=== PATIENT | female | born 1990 | race Caucasian/White ===

== ENCOUNTER 2024-03-25 02:09 | Observation (INO) | payer OTHER ==
--- NOTE | 2024-03-25 03:22 | ED ---
General Adult HPI - General Chief complaint: Extremity Injury, Upper Stated complaint: transfer/hand pain Time Seen by Provider: 03/25/24 02:27 Source: EMS Mode of arrival: EMS - History of Present Illness Initial comments: 33-year-old female with no significant past medical history presenting to the ED with a chief complaint of right third finger infection. Patient reports lori roximately 2 weeks ago had a small cut to her right third finger. Reports since then has been progressively getting more red, warm, and swollen. Also states that she started to notice pain starting to travel up her right arm. Denies fever or chills. No drainage from the wound. No chest pain shortness of breath. No recent injury to the hand. Is not currently on antibiotics. Patient for this went to [facility] where she was provided a dose of clindamycin, patient 900 mg at 0009. Patient was then transferred to this facility secondary to concerns of tenosynovitis. Patient also had an x-ray performed which revealed no evidence of acute finding. Review of Systems ROS Statement: Those systems with pertinent positive or pertinent negative responses have been documented in the HPI. ROS Other: All systems not noted in ROS Statement are negative. General Exam General appearance: alert, in no apparent distress Eye exam: Present: normal appearance Neck exam: Present: normal inspection Respiratory exam: Present: normal lung sounds bilaterally Cardiovascular Exam: Present: regular rate GI/Abdominal exam: Present: soft Extremities exam: Present: tenderness (Does have streaking erythema going up the right upper extremity with warmth and tenderness to palpation.), other (On the dorsum of the right third finger appears to be abscess formation with surrounding warmth and erythema. Erythema is not circumferential. Does have pain upon passive flexion and extension of the finger however not out of proportion. ) Neurological exam: Present: alert, oriented X3 Skin exam: Present: warm, dry Course Vital Signs 03/25/24 02:16 Temperature 98.5 F Pulse Rate 75 Respiratory 18 Rate Blood Pressure 132/83 O2 Sat by Pulse 99 Oximetry Medical Decision Making - Medical Decision Making Was pt. sent in by a medical professional or institution (TERR[facility] Luciano, SCALLOP CUTTER, urgent care, hospital, or [facility]...) When possible be specific @ -[facility] Did you speak to anyone other than the patient for history (EMS, parent, family, police, friend...)? What history was obtained from this source @ -No Did you review nursing and triage notes (agree or disagree)? Why? @ -I reviewed and agree with nursing and triage notes Were old charts reviewed (outside hosp., previous admission, EMS record, old EKG, old radiological studies, urgent care reports/EKG's, [facility] records)? Report findings @ -Reviewed paperwork from [facility]. For further details please HPI. Differential Diagnosis (chest pain, altered mental status, abdominal pain women, abdominal pain men, vaginal bleeding, weakness, fever, dyspnea, syncope, headache, dizziness, GI bleed, back pain, seizure, CVA, palpatations, mental health, musculoskeletal)? @ -Differential Musculoskeletal Muscular strain, contusion, ligament sprain, fracture, arthritis, septic arthritis, bursitis, cellulitis, muscle spasm, nerve compression, DVT, arterial occlusion, herpes zoster, electrolyte abnormality, tumor.... This is not meant to be in all inclusive list EKG interpreted by me (3pts min.). @ -None X-rays interpreted by me (1pt min.). @ -None done CT interpreted by me (1pt min.). @ -None done U/S interpreted by me (1pt. min.). @ -None done What testing was considered but not performed or refused? (CT, X-rays, U/S, labs)? Why? @ -None What meds were considered but not given or refused? Why? @ -None Did you discuss the management of the patient with other professionals (professionals i.e. , PA, SCALLOP CUTTER, lab, RT, psych nurse, social secretary, mysql database administrator, teacher, light armored reconnaissance officer, oil field caser)? Give summary @ -Case discussed with Dr. Newberry, who accepted admission. Was smoking cessation discussed for >3mins.? @ -No Was critical care preformed (if so, how long)? @ -No Were there social determinants of health that impacted care today? How? (Homelessness, low income, unemployed, alcoholism, drug addiction, transportation, low edu. Level, literacy, decrease access to med. care, detention, rehab)? @ -No Was there de-escalation of care discussed even if they declined (Discuss DNR or withdrawal of care, Hospice)? DNR status @ -No What co-morbidities impacted this encounter? (DM, HTN, Smoking, COPD, CAD, Cancer, CVA, ARF, Chemo, Hep., AIDS, mental health diagnosis, sleep apnea, morbid obesity)? @ -None Was patient admitted / discharged? Hospital course, mention meds given and route, prescriptions, significant lab abnormalities, going to OR and other per tinent info. @ -Admission 33-year-old female transferred to this facility from [facility] secondary to concerns of tenosynovitis. Patient has had remote injury to her ri ght third finger approximately 2 weeks ago. Since then has developed increasing redness and pain of that finger. On examination does appear to have abscess formation on the dorsum of her right third finger with surrounding erythema however erythema appears noncircumferential. No pain out of proportion on passive flexion or extension of the finger. Does however have streaking erythema up her right upper extremity. At this time vital signs stable afebrile. Does not appear to meet sepsis criteria. Patient had clindamycin given to her at [facility]. Additional dose of clindamycin was ordered for her to be given in the morning. Patient will be admitted to observation with consult to orthopedics. Discussed plan of care with patient who is in agreement. Undiagnosed new problem with uncertain prognosis? @ -No Drug Therapy requiring intensive monitoring for toxicity (Heparin, Nitro, Insulin, Cardizem)? @ -No Were any procedures done? @ -No Diagnosis/symptom? @ -Infection, right third finger Acute, or Chronic, or Acute on Chronic? @ -Acute Uncomplicated (without systemic symptoms) or Complicated (systemic symptoms)? @ -Complicated Side effects of treatment? @ -No Exacerbation, Progression, or Severe Exacerbation? @ -No Poses a threat to life or bodily function? How? (Chest pain, [place], [place], pneumonia, PE, COPD, DKA, ARF, appy, cholecystitis, CVA, Diverticulitis, Homicidal, Suicidal, threat to staff... and all critical care pts) @ -Possibly, infection of the right third finger. - Lab Data Result diagrams: 03/25/24 03:18 Lab Results 03/25/24 Range/Units 03:18 WBC 11.6 H (3.8-10.6) k/uL RBC 4.63 (3.80-5.40) m/uL Hgb 13.1 (11.4-16.0) gm/dL Hct 38.6 (34.0-46.0) % MCV 83.4 (80.0-100.0) fL MCH 28.2 (25.0-35.0) pg MCHC 33.8 (31.0-37.0) g/dL RDW 12.9 (11.5-15.5) % Plt Count 361 (150-450) k/uL MPV 7.4 Neutrophils % 82 % Lymphocytes % 10 % Monocytes % 5 % Eosinophils % 2 % Basophils % 0 % Neutrophils # 9.5 H (1.3-7.7) k/uL Lymphocytes # 1.1 (1.0-4.8) k/uL Monocytes # 0.6 (0-1.0) k/uL Eosinophils # 0.2 (0-0.7) k/uL Basophils # 0.0 (0-0.2) k/uL Disposition Clinical Impression: Finger infection Disposition: ADMITTED IP TO THIS [facility] Condition: Good Referrals: None,Stated [Primary Care Provider] - 1-2 days Time of Disposition: 02:30
[2024-03-25 03:28] LABS: Basophils % (A) 0 %; Eosinophils # (A) 0.2 k/uL (0-0.7); Eosinophils % (A) 2 %; HCT 38.6 % (34.0-46.0); HGB 13.1 gm/dL (11.4-16.0); Lymphocytes # (A) 1.1 k/uL (1.0-4.8); Lymphocytes % (A) 10 %; MCH 28.2 pg (25.0-35.0); MCHC 33.8 g/dL (31.0-37.0); MCV 83.4 fL (80.0-100.0); Mean Platelet Volume 7.4; Monocytes # (A) 0.6 k/uL (0-1.0); Monocytes % (A) 5 %; Neutrophils # (A) 9.5 k/uL (1.3-7.7); Neutrophils % (A) 82 %; Platelet Count 361 k/uL (150-450); RBC 4.63 m/uL (3.80-5.40); RDW 12.9 % (11.5-15.5); WBC 11.6 k/uL (3.8-10.6)
[2024-03-25] MEDS ORDERED: ONDANSETRON 4 MG/2 ML VIAL IVP PRN (03:42)
[2024-03-25] MEDS ORDERED: NALOXONE 0.4 MG/ML 1 ML VIAL IV PRN (03:42)
[2024-03-25 03:48] LABS: ALT 17 U/L (4-34); AST 24 U/L (14-36); African American GFR (CKD) >90 (>60 ml/min/1.73 sqM); Albumin 4.3 g/dL (3.5-5.0); Alkaline Phosphatase 75 U/L (38-126); Anion Gap 7 mmol/L; Blood Urea Nitrogen 11 mg/dL (7-17); Calcium 9.2 mg/dL (8.4-10.2); Carbon Dioxide 25 mmol/L (22-30); Chloride 105 mmol/L (98-107); Glucose 93 mg/dL (74-99); Non-African American GFR(CKD) >90 (>60 ml/min/1.73 sqM); Potassium 3.7 mmol/L (3.5-5.1); Sodium 137 mmol/L (137-145); Total Bilirubin 0.5 mg/dL (0.2-1.3); Total Protein 7.3 g/dL (6.3-8.2)
[2024-03-25] MEDS: SODIUM CHLORIDE 0.9% 1,000 ML IV STA (03:55)
[2024-03-25] MEDS: ACETAMINOPHEN TAB 500 MG TAB PO STA (03:59)
[2024-03-25] MEDS: KETOROLAC 15 MG/ML 1 ML VIAL IVP STA (04:01)
[2024-03-25] MEDS: HYDROmorphone 1 MG/ML 1 ML SYRINGE IVP STA ×2 (04:02→04:03)
--- NOTE | 2024-03-25 05:36 | P.HPIM ---
History of Present Illness H&P Date: 03/25/24 Chief Complaint: Right middle finger infection 33-year-old female no significant past medical history coming in as a transfer from [facility] for hand surgery evaluation. Patient had injured her right middle finger by hitting it against a table about 2 weeks ago resulted in a cut over the dorsum of the proximal interphalangeal joint patient attended to it was cleaning it and bandaging it daily however she noticed that it was not healing and today she started noticing some streaks of red-colored skin tender to palpation extending proximally over the forearm and the right arm for which she decided to come into the hospital for evaluation she also been noticing some swelling of the right middle finger with loss of active range of motion denies any numbness or tingling in the finger reports throbbing pain no active drainage she reports chills at home. She denies any diabetes mellitus or other chronic diseases denies any immunocompromisation. Patient admits to vaping denies any alcohol or street drugs review of systems Pertinent positives as noted in HPI. All other systems were reviewed and are negative on exam Constitutional: No acute distress, conversant, pleasant Eyes: Anicteric sclerae, moist conjunctiva, Pupils equal round reactive to light ENMT: NC/AT Oropharynx clear, no erythema, or exudates Neck: Supple, no masses, or JVD No carotid bruits No thyromegaly Lungs: Clear to auscultation Clear to percussion Normal respiratory effort, no accessory muscle use Cardiovascular: Heart regular in rate and rhythm, No murmurs, gallops, or rubs No peripheral edema Abdominal: Soft Nontender, no guarding, rebound or rigidity Abdomen moving with respiration Normoactive bowel sounds No hepatomegaly, No splenomegaly No palpable mass No abdominal wall hernia noted Skin: There is swelling over the proximal right mid interphalangeal joint over the middle finger tender to palpation swelling with grayish discoloration then there is swelling over the right hand and streaks of erythema extending all the way to the axillary region Extremities: No digital cyanosis No clubbing Pedal pulses intact and symmetrical Radial pulses intact and symmetrical No calf tenderness Psychiatric: Alert and oriented to person, place and time Appropriate affect fair judgement Neuro Muscles Strength 5/5 in all 4 extremities Sensation to light touch grossly present throughout Cranial nerves II-XII grossly intact Lymphatics: Palpable lymph nodes over the right brachial plexus and right groin Medications and Allergies Allergies Allergy/AdvReac Type Severity Reaction Status Date / Time No Known Allergies Allergy Verified 03/25/24 03:47 Physical Exam Vitals: Vital Signs Temp Pulse Resp BP Pulse Ox 03/25/24 02:16 98.5 F 75 18 132/83 99 Intake and Output 03/24/24 03/24/24 03/25/24 14:59 22:59 06:59 Other: Weight 59.874 kg Results CBC & Chem 7: 03/25/24 03:18 03/25/24 03:18 Labs: Abnormal Lab Results - Last 24 Hours (Table) 03/25/24 Range/Units 03:18 WBC 11.6 H (3.8-10.6) k/uL Neutrophils # 9.5 H (1.3-7.7) k/uL Assessment and Plan Assessment: 33-year-old female no significant past medical history sustained accidental injury against a table at home to her right middle finger 2 weeks ago now presenting with swelling limitation of range of motion proximal extending erythema chills at home I discussed the case with ED doctor and accepted the admission for sepsis secondary to right middle finger infection with anticipated length of stay more than 2 midnights Right middle finger abscess and cellulitis Hand surgery consult Follow-up cultures Patient was started on clindamycin like [facility] we will continue with that for now Pain control with Toradol 50 mg IV push as needed Tylenol 660 mg 4 times daily as needed for fever IV fluid hydration normal saline 130 cc/h Blood work and imaging done at [facility] was reviewed and shows White count 12.9 hemoglobin 12.9 CRP elevated 2.2 Patient received IV antibiotics with clindamycin Renal function unremarkable BUN 12 creatinine 0.8 sodium 135 potassium 3.4 X-rays of the right hand showed no evidence of osteomyelitis Full code DVT prophylaxis heparin subcu 3 times daily
[2024-03-25] MEDS: MORPHINE SULFATE 2 MG/ML SYRINGE IVP ONE (06:14)
[2024-03-25 08:13] LABS: Appearance,Urine Clear (Clear); Bilirubin,Urine Negative (Negative); Blood,Urine Negative (Negative); Color,Urine Yellow; Glucose,Urine (UA) Negative (Negative); Ketones,Urine 2+ (Negative); Leukocyte Esterase,Urine Negative (Negative); Nitrite,Urine Negative (Negative); Protein,Urine Trace (Negative); Specific Gravity,Urine 1.035 (1.001-1.035); Urobilinogen,Urine <2.0 mg/dL (<2.0)
--- NOTE | 2024-03-25 08:30 | XR ---
EXAMINATION TYPE: XR hand complete RT DATE OF EXAM: 03/25/2024 COMPARISON: Outside radiograph 03/24/2024 HISTORY: 33-year-old female infection middle finger. Prior laceration with subsequent swelling. TECHNIQUE: 3 views FINDINGS: There is soft tissue swelling of the middle finger particularly at the dorsal aspect at the level of the PIP joint. No retained radiopaque foreign body seen. No underlying acute fracture, subl uxation, dislocation. No periostitis or osteolysis. IMPRESSION: Soft tissue swelling about the PIP joint of the third finger, especially dorsally. No retained radiop aque foreign body or acute osseous abnormality seen.
[2024-03-25] MEDS: HEPARIN SODIUM,PORCINE 5,000 UNIT/ML 1 ML VIAL SQ SCH (08:39)
[2024-03-25] MEDS: CLINDAMYCIN 600 MG in DEXTROSE 5% IN WATER 50 ML IVPB SCH (08:46)
[2024-03-25] MEDS: HYDROmorphone 1 MG/ML 1 ML SYRINGE IVP PRN (09:47)
--- NOTE | 2024-03-25 11:27 | P.PCN ---
Date of Procedure: 03/25/24 Preoperative Diagnosis: Right middle finger dorsal abscess Postoperative Diagnosis: Right middle finger dorsal abscess Procedure(s) Performed: Right middle finger dorsal abscess incision and drainage Anesthesia: local Surgeon: Leonidas Ghotra Estimated Blood Loss (ml): 0 Pathology: none sent Condition: stable Description of Procedure: This is a 33 year old female who presented to the hospital for a right middle finger dorsal abscess that has been developing over the past several weeks. Verbal consent was obtained to perform a right middle finger incision and drainage. The right middle finger was prepped with an alcohol swab and a digital block utilizing 6cc's of 1% lidocaine was performed to the middle finger. After appropriate analgesia was obtained. A 15 blade scalpel was utilized to make a longitudinal incision at the area of maximal fluctuance. Upon incision and very small amount of purulence was able to be expressed, to small to obtain any culture. Septations were then with scissors and the wound was flushed with sterile saline. The wound was left open and a soft dressing was placed with xeroform, 4x4's and kerlix. Patient tolerated the procedure well. Disposition: She may be discharged on Bactrim DS x 10 days. She may perform warm soapy soaks BID for 2 days then let the wound dry out. She can follow up in the outpatient setting in 2 weeks. She is stable for discharge today. Leonidas Ghotra DO Orthopedic Hand/Upper Extremity Surgeon
--- NOTE | 2024-03-25 11:40 | P.CNOR ---
History of Present Illness - HPI Consult date: 03/25/24 Requesting physician: Kwadwo Patel Consult reason: other (R third finger infection) History of present illness: Patient is a 33-year-old female who presents to the [facility] as a transfer from [facility] due to right middle finger infection. Patient was seen at bedside this morning on 6 N. patient states about 2 weeks ago she bumped her finger onto the counter at home and since then the right middle finger has gotten progressively worse as far as erythema and swelling. Patient notes over the past several days she has had some red streaking lines upper right arm. Patient says she did been present to [facility] where she was in the ER and treated with IV clindamycin. Patient denies any drainage from the wound on the backside of her middle finger. Patient was transferred a [facility] due to concerns for tenosynovitis. P michoacano was seen at bedside and states that since yesterday the redness in the upper arm has decreased in some of his swelling has gone down. Patient states she still has some issues with range of motion in the middle finger. Patient says she is able to move the other digits in her right hand without pain. Patient also states some pain and swelling that goes to her right wrist. Patient denies any numbness or tingling in the digits. Patient denies any significant fever/chills at home. Patient denies any use of illicit drugs. Patient denies any previous significant orthopedic surgical history. Patient denies being on any blood thinners. Patient denies chest pain, fever, shortness breath, nausea, cut in vision, loss of bowel/bladder control. Past Medical History Additional Past Medical History / Comment(s): heart murmur at . History of Any Multi-Drug Resistant Organisms: None Reported Additional Past Surgical History / Comment(s): wisdom teeth removed Smoking Status: Former smoker Medications and Allergies Home Medications Medication Instructions Recorded Confirmed Type No Known Home Medications 03/25/24 03/25/24 History Allergies Allergy/AdvReac Type Severity Reaction Status Date / Time No Known Allergies Allergy Verified 03/25/24 07:11 Physical Examination Right third digit does present with some erythema and swelling around the pro ximal interphalangeal joint on the dorsum. Negative for any active drainage or ecchymosis. Sensation is equal, symmetric, bilaterally intact throughout the upper extremities. There is some lymphangitis extending to the proximal right upper extremity. Patient does have full range of motion throughout the right elbow and right shoulder. There is little bit of limited range of motion in the right wrist secondary to referred pain and stiffness to the hand. Patient does have full range of motion throughout digits 1, 2, 4, 5 on the right hand. Patient does have limited range of motion and right third digit and the MTPJ and PIPJ secondary to pain. 4/5 in resisted right elbow flexion-extension and right shoulder forward elevation, external/internal rotation abduction.4-/5 in resisted right wrist flexion and extension. Feed Mill Tender strength 3/5 secondary to pain in swelling in the right third digit/hand. Radial pulses intact, 2+ bilaterally. Cap refill under 3 seconds in digits of upper extremities. Results - Labs Labs: Abnormal Lab Results - Last 24 Hours (Table) 03/25/24 03/25/24 Range/Units 02:59 03:18 WBC 11.6 H (3.8-10.6) k/uL Neutrophils # 9.5 H (1.3-7.7) k/uL Urine Protein Trace H (Negative) Urine Ketones 2+ H (Negative) H & H 03/25/24 Range/Units 03:18 Hgb 13.1 (11.4-16.0) gm/dL Hct 38.6 (34.0-46.0) % Result Diagrams: 03/25/24 03:18 03/25/24 03:18 - Diagnostic results Wrist/Hand x-ray: report reviewed, image reviewed (X-ray of the right hand and digits does reveal swelling along the dorsal aspect of the right third digit at the PIPJ. Negative for any findings of osteomyelitis or fracture.) Assessment and Plan Assessment: 1. Right middle finger dorsal abscess Plan: 1. Right middle finger dorsal abscess - x-ray of the right hand was revealed and does reveal soft tissue swelling on the dorsum of the right third digit at the PIPJ. Negative for any dislocation/fracture/concerns for osteomyelitis of the finger. I did discuss the findings of the exam and imaging with my attending, Dr. Ghotra. At this time we are recommending bedside procedure for I&D of the right third digit. We are not recommending any orthopedic surgical intervention at this time. Once bedside I&D is performed, patient is stable from an orthopedic standpoint for discharge from the hospital. Patient can perform warm soapy soaks for 2 times a day over the next couple days and then may follow-up in the outpatient setting with Dr. Ghotra for continued care. abx recommendations per infectious disease and medicine 2. Appreciate medical and ID management 3. Pain management -Toradol; Tylenol 4. GI prophylaxis recs 5. DVT prophylaxis -heparin 6. PT/OT - okay to perform gentle range of motion exercises of the right upper extremity and hand as tolerated. 7. Appreciate consult Time with Patient: Less than 30
[2024-03-25] MEDS: ACETAMINOPHEN TAB 325 MG TAB PO PRN (14:10)
--- NOTE | 2024-03-25 18:23 | P.PN ---
Subjective Progress Note Date: 03/25/24 Hospital course: Patient is a pleasant 33-year-old female with no reported past medical history. She presented to our facility from a transfer from [facility] secondary to cellulitis of right middle finger with abscess. Patient reported she had a small cut on her knuckle about 2 weeks ago after hitting it on a table and over the past week noticed some increased swelling and pain but reports she began experiencing redness streaking up her arm accompanied by pain to her upper arm so she came to the emergency department for evaluation. Patient was transferred to our facility for admission with IV antibiotics and evaluation by orthopedic surgery team. Physical exam: Vital signs reviewed and stable. General: Nontoxic, no distress and appears stated age. Derm: Skin warm and dry, normal coloration for ethnicity. Patient with swelling and erythema over dorsal right mid interphalangeal joint of right middle finger with olmedo-colored scab and mild erythema extending up her forearm. Head: Atraumatic, normocephalic and symmetric. Eyes: EOMs intact, no lid lag, and anicteric sclera Mouth: no lip lesions, mucus membranes moist Cardiovascular: regular rate and rhythm with normal S1S2, no murmur, positive posterior tibial pulses bilaterally, and cap refill < 2 seconds. Lungs: Respirations even, regular, and unlabored on room air. Lungs CTA bilaterally, no rhonchi, no rales, no wheezing, and no accessory muscle usage. Abdominal: soft, nontender to palpation, no guarding, no appreciable orga nomegaly Ext: ROM intact. No gross muscle atrophy, no edema, no contractures Neuro: Speech clear, face symmetrical and CN II-XII grossly intact with no noted focal neuro deficits Psych: Alert and oriented to person, place, time, and situation. Appropriate and pleasant affect. Assessment and Plan of Care: Right middle finger abscess and cellulitis Hand surgery consult Follow-up cultures Continue IV antibiotics with clindamycin 600 mg every 8 hours Pain control with Toradol 50 mg IVP every 6 hours as needed for moderate pain and Dilaudid 0.5 mg every 3 hours as needed for severe pain. Tylenol 650 mg every 6 hours as needed for fever Patient received IV fluid hydration and tolerating oral intake. IV fluids discontinued at this time pending further recommendations from orthopedic surgery team. Data reviewed: Morning labs reviewed. CBC showing leukocytosis with WBC count of 11.6. BMP unremarkable. Liver profile unremarkable. Vital signs reviewed. Blood pressure 123/69, heart rate 60, respiratory rate 17, temp 97.9 F, and SpO2 100% on room air. CODE STATUS: Full code DVT prophylaxis: Heparin Anticipated discharge date: Likely 24 to [address]: Home Patient was seen independently by Nurse Pracitioner. This document was prepared using [employer] dictation software. Please allow for errors in composition roll maker and cutter, while rare they do occur. I reviewed the documentation as provided by the ROSA above, who is the original author of this note. I agree with the documented assessment and plan, with the following changes: none Objective - Vital Signs Vital signs: Vital Signs Temp 97.9 F 03/25/24 07:00 Pulse 60 03/25/24 07:00 Resp 17 03/25/24 07:00 BP 123/69 03/25/24 07:00 Pulse Ox 100 03/25/24 07:00 FiO2 Intake & Output 03/24/24 03/25/24 03/25/24 18:59 06:59 18:59 Intake Total 260 Balance 260 Weight 59.874 kg Intake: Intake, IV Titration 260 Amount Sodium Chloride 0.9% 1, 260 000 ml @ 130 mls/hr IV . [id number] STA Rx#:[id number] - Labs CBC & Chem 7: 03/26/24 06:41 03/26/24 06:41 Labs: Abnormal Lab Results - Last 24 Hours (Table) 03/25/24 03/25/24 Range/Units 02:59 03:18 WBC 11.6 H (3.8-10.6) k/uL Neutrophils # 9.5 H (1.3-7.7) k/uL Urine Protein Trace H (Negative) Urine Ketones 2+ H (Negative)
[2024-03-25] MEDS: MELATONIN 3 MG TABLET PO PRN (20:36)
[2024-03-25 21:22] VITALS: RESP 16
[2024-03-26 03:10] VITALS: TEMP 98.2
[2024-03-26 07:51] LABS: HCT 40.6 % (34.0-46.0); HGB 12.7 gm/dL (11.4-16.0); MCH 27.2 pg (25.0-35.0); MCHC 31.3 g/dL (31.0-37.0); MCV 86.9 fL (80.0-100.0); Mean Platelet Volume 7.5; Platelet Count 315 k/uL (150-450); RBC 4.68 m/uL (3.80-5.40); RDW 12.8 % (11.5-15.5); WBC 7.9 k/uL (3.8-10.6)
[2024-03-26 08:08] VITALS: BP 116/74; PULSE 78
[2024-03-26] MEDS: HYDROmorphone 0.5 MG/0.5 ML SYRINGE IVP PRN (09:09)
[2024-03-26] MEDS: KETOROLAC 15 MG/ML 1 ML VIAL IVP PRN (09:10)
[2024-03-26 12:35] LABS: BUN/Creat Ratio 10.17 Ratio (12.00-20.00); Blood Urea Nitrogen 6.1 mg/dL (9.0-27.0); Calcium 9.2 mg/dL (8.7-10.3); Chloride 103 mmol/L (96-109); Glucose 97 mg/dL (70-110); Potassium 4.2 mmol/L (3.5-5.5); Sodium 137 mmol/L (135-145)
--- NOTE | 2024-03-26 18:06 | P.DS ---
Providers Date of admission: 03/25/24 03:50 Expected date of discharge: 03/26/24 Attending physician: Lory Newberry MD Consults: 03/25/24 03:42 Consult Physician Urgent Consulting Provider: Leonidas Ghotra Consult Reason/Comments: R third finger infection Do you want consulting provider notified?: Yes Primary care physician: Stated None Hospital Course: Discharge Diagnosis: Right middle finger abscess and cellulitis. Patient was placed on IV antibiotics with clindamycin and was evaluated by orthopedic surgery. Dr. Ghotra, orthopedic hand surgeon performed I&D and recommending patient be discharged home on Bactrim DS and follow-up outpatient in his office in 2 weeks. Leukocytosis, resolved Hospital course: Patient is a pleasant 33-year-old female with no reported past medical history. She presented to our facility from a transfer from [facility] secondary to cellulitis of right middle finger with abscess. Patient reported she had a small cut on her knuckle about 2 weeks ago after hitting it on a table and over the past week noticed some increased swelling and pain but reports she began experiencing redness streaking up her arm accompanied by pain to her upper arm so she came to the emergency department for evaluation. Patient was transferred to our facility for admission with IV antibiotics and evaluation by orthopedic surgery team. Blood hCG was obtained negative for . Patient was placed on IV antibiotics with clindamycin and was evaluated by orthopedic surgery. Dr. Ghotra, orthopedic hand surgeon performed I&D and recommending patient be discharged home on Bactrim DS and follow-up outpatient in his office in 2 weeks. Blood cultures showing no growth to date. Patient medically stable for discharge at this time. Patient discharged home on Bactrim DS 800-160 mg tablets every 12 hours for 10 days and recommended to follow-up outpatient with PCP within [address] Graham, orthopedic surgeon in 2 weeks. Physical exam: Vital signs reviewed and stable. General: Nontoxic, no distress and appears stated age. Derm: Skin warm and dry, normal coloration for ethnicity. Erythema to mid forearm has resolved, dressing in place to right middle finger currently clean, dry, and intact. Head: Atraumatic, normocephalic and symmetric. Eyes: EOMs intact, no lid lag, and anicteric sclera Mouth: no lip lesions, mucus membranes moist Cardiovascular: regular rate and rhythm with normal S1S2, no murmur, positive posterior tibial pulses bilaterally, and cap refill < 2 seconds. Lungs: Respirations even, regular, and unlabored on room air. Lungs CTA bilaterally, no rhonchi, no rales, no wheezing, and no accessory muscle usage. Abdominal: soft, nontender to palpation, no guarding, no appreciable organomegaly Ext: ROM intact. No gross muscle atrophy, no edema, no contractures Neuro: Speech clear, face symmetrical and CN II-XII grossly intact with no noted focal neuro deficits Psych: Alert and oriented to person, place, time, and situation. Appropriate and pleasant affect. A total of 31 minutes of time were spent preparing this complex discharge summary. Pt was discharged on 03/26/2024 at 9:30 AM. Patient was seen independently by Nurse Practitioner. This document was prepared using 115 network disks dictation software. Please allow for errors in straight slicing machine operator while rare they do occur. I reviewed the documentation as provided by the ROSA above, who is the original author of this note. I agree with the documented assessment and plan, with the following changes: none Patient Condition at Discharge: Stable Plan - Discharge Summary New Discharge Prescriptions: New Sulfamethox-Tmp 800-160Mg [Bactrim DS 800-160 mg] 1 tab PO Q12HR 10 Days #20 tab Discharge Medication List Sulfamethox-Tmp 800-160Mg [Bactrim DS 800-160 mg] 1 tab PO Q12HR 10 Days #20 tab 03/26/24 [Rx] Follow up Appointment(s)/Referral(s): Leonidas Ghotra DO [Doctor of Osteopathic Medicine] - 2 Weeks (5-10th at 2:15pm) Carlos Cat MD [REFERRING] - 1 Week Patient Instructions/Handouts: Cellulitis (GEN), Abscess (GEN) Activity/Diet/Wound Care/Special Instructions: 02/24/2024 spoke to Jessica in scheduling and she scheduled appt and she will speak with barbi on Friday and if there is an issue then she will call pt, otherwise f/u as scheduled. Discharge Disposition: HOME SELF-CARE
== END 2024-03-26 14:05 | disposition home or self-care (01) ==
LOC: EC 02:09 → 6NMEDSUR 03:50
PROVIDERS: ADMIT Internal Medicine; ATTEND Internal Medicine
DX: L03.011 Cellulitis of right finger (principal); L02.511 Cutaneous abscess of right hand; W22.8XXA Striking against or struck by other objects, initial encounter; Z87.891 Personal history of nicotine dependence
CPT/HCPCS: 36415; 80048; 80053; 81003; 84703; 85025; 85027; 86140; 87040; 96361; 96365; 96366; 96367; 96376; 99285